=== PATIENT | female | born 1945 | race Caucasian/White ===

== ENCOUNTER → 2021-02-15 14:17 | Outpatient (CLI) | payer MEDICARE, SELFPAY ==
--- NOTE | 2021-02-15 15:29 | VDLE_ITS ---
Reason For Study: Pain RIGHT GSV is normal. CFV is compressible, spontaneous, phasic, competent and demonstrates normal augmentation. FV is compressible, spontaneous, phasic, competent and demonstrates normal augmentation. POP V is compressible, spontaneous, phasic, competent and demonstrates normal augmentation. T/P Trunk is compressible. PTV is compressible. RT PerV is compressible. Procedure This is a venous duplex using B-mode, color flow and spectral Doppler. Exam performed in department. A preliminary report was called and/or faxed to [facility]. VL/Venous Duplex US, Unilateral Interpretation Summary Deep veins of the right lower extremity are patent and compressible segmentally . There is no evidence of right lower extremity deep vein thrombosis. Valvular competence hodan ears intact within the proximal deep venous system on the right . The right great saphenous vein a ppears patent and compressible segmentally. Ordering Physician: Manjeet Jose Referring Physician: Jimmy Riggins Performed By: Bianca Norwood RVT
== END ==
PROVIDERS: PCP Student in an Organized Health Care Education/Training Program; Referring Provider Specialist; Visit Provider Specialist
DX: M79.661 Pain in right lower leg (principal)
CPT/HCPCS: 93971